=== PATIENT | male | born 1960 | race Caucasian/White ===

== ENCOUNTER 2016-12-13 06:55 | Day surgery (SDC) | payer BC ==
[2016-12-13] MEDS ORDERED: Sodium Chloride 0.9% 10 ML Syringe FLUSH PRN (07:00)
[2016-12-13] MEDS ORDERED: Lactated Ringers 1,000 ML IV SCH (07:00)
[2016-12-13] MEDS ORDERED: fentaNYL 100 MCG/2 ML SDV ONE (08:19)
[2016-12-13] MEDS ORDERED: Propofol 200 MG/20 ML SDV ONE ×2 (08:19→09:18)
[2016-12-13] MEDS ORDERED: Midazolam 1 MG/ML 2 ML SDV ONE (08:55)
[2016-12-13 10:32] VITALS: BP 107/69
--- NOTE | 2016-12-13 16:56 | OR ---
DATE OF SURGERY: 12/13/2016. REFERRING PROVIDER: Yaneth Wang PA-C. PRE-OPERATIVE DIAGNOSES: Positive FIT stool card. This is the patient's first colonoscopy. There is no known family history of colon cancer or colon polyps. POST-OPERATIVE DIAGNOSES: 1. A 2 mm rectal polyp, removed with cold forceps. 2. Mild sigmoid diverticulosis. PROCEDURE: Colonoscopy with polypectomy x1 using cold forceps. SURGEON: Ezra Gomez M.D. ANESTHESIA: Monitored anesthesia care. BOWEL PREP: Good. DESCRIPTION OF OPERATION: Haroldo is a 56-year-old male who was brought to the endoscopy suite after discussing risks and benefits of the procedure. Informed consent was obtained for conscious sedation and colonoscopy with or without biopsy and/or polypectomy. We also discussed possibility of missed lesions. Pre-procedure exam was unremarkable. IV, oxygen, and monitors were placed. The patient was placed in the left lateral decubitus position. Sedation was administered and a rectal exam was performed, did reveal some mild to moderate prostate enlargement, but no palpable nodules. Colonoscope was passed into the rectum and slowly advanced all the way to the cecum. Cecum was viewed and photographed. The colonoscope was slowly withdrawn and the mucosa was closed observed in a direct circumferential manner. The ascending colon was unremarkable. The transverse colon was unremarkable. The descending colon was unremarkable. The sigmoid colon did reveal some mild diverticulosis. The rectal mucosa did reveal 2-mm polyp which was removed using cold forceps. This did appear to be hyperplastic type polyp. I will await Path report. Retroflexion was performed. Rectal mucosa was otherwise unremarkable. Scope was removed. The patient tolerated the procedure well. The patient was monitored until that baseline status. Discharge instructions were reviewed and the patient was discharged in good condition. COMPLICATIONS: None. TOTAL TIME: 13 minutes ESTIMATED BLOOD LOSS: Less than 1 mL. RECOMMENDATIONS/FOLLOW-UP: We will await Path report to determine ideal followup interval. I will have the patient hold his aspirin for 3 days to limit any chance of bleeding. I would like to kindly thank Yaneth Wang for this referral. DMB: 12/13/2016 09:33:28 MODL: 12/13/2016 16:48:46 /[id number]
== END 2016-12-13 10:33 | disposition home or self-care (01) ==
LOC: VM.SDS 06:55
PROVIDERS: ATTEND Family Medicine
DX: K62.1 Rectal polyp (principal); K57.30 Diverticulosis of large intestine without perforation or abscess without bleeding; R73.01 Impaired fasting glucose; E78.00 Pure hypercholesterolemia, unspecified; I10 Essential (primary) hypertension; Z79.82 Long term (current) use of aspirin; Z87.891 Personal history of nicotine dependence; Z82.49 Family history of ischemic heart disease and other diseases of the circulatory system
CPT/HCPCS: 45380; J2250; J2704; J3010; J7120